=== PATIENT | female | born 1930 | race Caucasian/White ===

== ENCOUNTER → 2017-11-22 | Outpatient (CLI) | payer MEDICARE | LOC: LABWHC1 10:51 | PROVIDERS: ATTEND Nurse Practitioner Family | DX: R05 Cough (principal); J31.1 Chronic nasopharyngitis | CPT/HCPCS: 87070; 87102; 88108; 88305 ==

== ENCOUNTER → 2020-09-11 | Outpatient (CLI) | payer MEDICARE, OTHER ==
--- NOTE | 2020-09-11 18:29 | CT ---
EXAMINATION TYPE: CT sinus wo con DATE OF EXAM: 09/11/2020 COMPARISON: NONE HISTORY: Chronic sinusitis per order, headache and dizziness. CT DLP: 587.5 mGycm. Automated Exposure Control for Dose Reduction was Utilized. TECHNIQUE: CT scan of the sinuses is performed without contrast, axial images are obtained, coronal r eformatted images are also reviewed. FINDINGS: Minimal mucosal thickening posterior aspect of the larger caliber right sphenoid sinus. Mil d to moderate mucosal thickening in ethmoid sinuses bilaterally. Mild to moderate inferior mucosal th ickening right frontal sinus with patchy fluid. The surgically treated ostiomeatal complex is patent bilaterally on coronal image 21. Visualized portion of mastoid air cells show no abnormal opacification. The globes are intact bilate rally. Visualized brain parenchyma shows moderate diffuse cerebral atrophy and chronic small vessel ischemic changes. Small subcutaneous light lipoma superior to the right frontal sinus noted axial raimundo ge [id number]. IMPRESSION: Some residual mild to moderate chronic paranasal sinus disease. Mild acute sinusitis rig ht frontal sinus on current study.
== END ==
LOC: RADCTMAIN 17:24
PROVIDERS: ATTEND Otolaryngology
DX: J32.9 Chronic sinusitis, unspecified (principal); R05 Cough
CPT/HCPCS: 70486

== ENCOUNTER → 2020-09-11 | Outpatient (CLI) | payer MEDICARE, OTHER ==
--- NOTE | 2020-09-11 18:04 | XR ---
EXAMINATION: XR chest 2V DATE AND TIME: 09/11/2020 5:46 PM CLINICAL INDICATION: PHH; R05; cough and sinus congestion TECHNIQUE: PA and lateral COMPARISON: None FINDINGS: The lungs are clear. The pleural spaces are negative. The cardiac silhouette is mildly enlarged, and the thoracic aorta is prominently tortuous The skeletal structures and soft tissues are negative for acute findings. IMPRESSION: NO ACUTE PROCESS.
== END | disposition home or self-care (01) ==
LOC: RADXRMAIN 17:40
PROVIDERS: ATTEND Otolaryngology
DX: R05 Cough (principal)
CPT/HCPCS: 71046

== ENCOUNTER → 2020-12-10 | Outpatient (CLI) | payer MEDICARE, OTHER | END | disposition home or self-care (01) | LOC: LABWHC1 12:52 | PROVIDERS: ATTEND Otolaryngology | DX: G50.1 Atypical facial pain (principal) | CPT/HCPCS: 36415; 85652 ==

== ENCOUNTER 2020-12-13 14:49 | Emergency (ER) | payer MEDICARE, OTHER ==
[2020-12-13 15:02] VITALS: TEMP 98.4
--- NOTE | 2020-12-13 15:29 | ED ---
Dizziness HPI - General Chief Complaint: Dizziness Stated Complaint: med reaction Time Seen by Provider: 12/13/20 15:14 Source: patient, family, RN notes reviewed Mode of arrival: wheelchair Limitations: no limitations - History of Present Illness Initial Comments: 89-year-old female, alert and oriented 4, presents to the emergency room complaining of sudden onset at 11:30 of nausea and vomiting with dizziness. Patient states that she had breakfast at 8:30 and took her Bactrim which was prescribed to her by Dr. Sanchez last week for frontal headache. Dr. Sanchez performed balloon intervention to bilateral nostrils 2 months ago the patient has been having some congestion since. Patient states that she just started to take the Bactrim this morning and he prescribed last week and thinks she may be having a reaction to the medication. Patient states all of her symptoms have resolved at this point. However she did have one episode of vomiting 11:30 which was mostly phlegm and mucus and then dry heaves multiple times after. Patient denies any chest pain, shortness of breath, tongue swelling, diarrhea or fevers. 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 MD Complaint: dizziness -: hour(s) (4) Timing: sudden onset Description: "room spinning" History of Same: No History of Trauma: No Associated Symptoms: other (Nausea vomiting) - Related Data Allergies Allergy/AdvReac Type Severity Reaction Status Date / Time amoxicillin [From Augmentin] Allergy Nausea & Verified 12/13/20 15:03 Vomiting & Diarrhea clavulanic acid Allergy Nausea & Verified 12/13/20 15:03 [From Augmentin] Vomiting & Diarrhea Review of Systems ROS Statement: Those systems with pertinent positive or pertinent negative responses have been documented in the HPI. ROS Other: All systems not noted in ROS Statement are negative. Past Medical History Past Medical History: Atrial Fibrillation, Hypertension History of Any Multi-Drug Resistant Organisms: None Reported Additional Past Surgical History / Comment(s): sinus surgery Past Psychological History: No Psychological Hx Reported Smoking Status: Former smoker Past Alcohol Use History: None Reported Past Drug Use History: None Reported General Exam Limitations: no limitations General appearance: alert, in no apparent distress Head exam: Present: atraumatic, normocephalic, normal inspection Eye exam: Present: normal appearance, PERRL, EOMI. Absent: scleral icterus, conjunctival injection, periorbital swelling Pupils: Present: normal accommodation ENT exam: Present: normal exam, mucous membranes dry (Sticky), mucous membranes moist Neck exam: Present: normal inspection, full ROM. Absent: tenderness, meningismus, lymphadenopathy, thyromegaly Respiratory exam: Present: normal lung sounds bilaterally. Absent: respiratory distress, wheezes, rales, rhonchi, stridor, chest wall tenderness, accessory muscle use Cardiovascular Exam: Present: regular rate, normal rhythm, normal heart sounds. Absent: systolic murmur, diastolic murmur, rubs, gallop, clicks GI/Abdominal exam: Present: soft, normal bowel sounds. Absent: distended, tenderness, guarding, rebound, rigid Rectal exam: Present: deferred Extremities exam: Present: normal inspection, full ROM, normal capillary refill. Absent: tenderness, pedal edema, joint swelling, calf tenderness Back exam: Present: normal inspection, full ROM. Absent: tenderness, CVA tenderness (R), CVA tenderness (L) Neurological exam: Present: alert, oriented X3, CN II-XII intact Psychiatric exam: Present: normal affect, normal mood Skin exam: Present: warm, dry, intact, normal color. Absent: rash, cyanosis, diaphoretic, erythema, urticaria, vesicles, petechiae, pallor, mottled Course Vital Signs 12/13/20 12/13/20 12/13/20 14:54 16:34 18:53 Temperature 98.4 F Pulse Rate 82 70 65 Respiratory 20 18 18 Rate Blood Pressure 115/69 172/64 160/60 O2 Sat by Pulse 96 96 93 L Oximetry EKG Findings - EKG Results: EKG: sinus rhythm (Ventricular rate is 68, PA interval 0.186, QRS of 0.102, QTC is 0.414) Medical Decision Making - Medical Decision Making Patient states she was feeling better after the IV fluids, and Zofran for nausea. Patient was treated by Dr. Sanchez with Bactrim for sinusitis however has only taken one pill. Patient thinks this is related to have Bactrim that she took and is going to stop and call in the morning. She does have a white count of 15 with neutrophil 13.8. Bun is elevated at 28 which patient was hydrated with one liter of fluid. Troponin is negative at 0.012, EKG sinus rhythm. Chest x-ray shows no acute cardiopulmonary process. Patient and her son are agreeable to discharge, son states he will call Dr. Sanchez to discuss antibiotic options this patient's refusing change in antibiotics at this time. Case discussed with . - Lab Data Result diagrams: 12/13/20 16:29 12/13/20 16:29 Lab Results 12/13/20 12/13/20 12/13/20 Range/Units 16:29 16:29 16:29 WBC 15.2 H (3.8-10.6) k/uL RBC 4.24 (3.80-5.40) m/uL Hgb 13.7 (11.4-16.0) gm/dL Hct 39.9 (34.0-46.0) % MCV 94.1 (80.0-100.0) fL MCH 32.3 (25.0-35.0) pg MCHC 34.4 (31.0-37.0) g/dL RDW 12.5 (11.5-15.5) % Plt Count 240 (150-450) k/uL MPV 7.8 Neutrophils % 91 % Lymphocytes % 2 % Monocytes % 5 % Eosinophils % 2 % Basophils % 0 % Neutrophils # 13.8 H (1.3-7.7) k/uL Lymphocytes # 0.3 L (1.0-4.8) k/uL Monocytes # 0.7 (0-1.0) k/uL Eosinophils # 0.3 (0-0.7) k/uL Basophils # 0.0 (0-0.2) k/uL Sodium 139 (137-145) mmol/L Potassium 3.9 (3.5-5.1) mmol/L Chloride 105 (98-107) mmol/L Carbon Dioxide 27 (22-30) mmol/L Anion Gap 7 mmol/L BUN 28 H (7-17) mg/dL Creatinine 0.66 (0.52-1.04) mg/dL Est GFR (CKD-EPI)AfAm >90 (>60 ml/min/1.73 sqM) Est GFR (CKD-EPI)NonAf 79 (>60 ml/min/1.73 sqM) Glucose 126 H (74-99) mg/dL Calcium 9.2 (8.4-10.2) mg/dL Total Bilirubin 0.6 (0.2-1.3) mg/dL AST 27 (14-36) U/L ALT 15 (4-34) U/L Alkaline Phosphatase 77 (38-126) U/L Troponin I <0.012 (0.000-0.034) ng/mL Total Protein 6.7 (6.3-8.2) g/dL Albumin 4.0 (3.5-5.0) g/dL Disposition Clinical Impression: Dehydration, Nausea Clinical Impression: (Ruled Out): Dehydration after exertion Disposition: HOME SELF-CARE Condition: Good Instructions (If sedation given, give patient instructions): Acute Nausea and Vomiting (ED), Dizziness (ED) Additional Instructions: Follow-up with Dr. Sanchez this week return if worsening symptoms. Is patient prescribed a controlled substance at d/c from ED?: No Referrals: Kieran Lam MD [Primary Care Provider] - 1-2 days Stephen Gerardo DO [Doctor of Osteopathic Medicine] - 1-2 days Time of Disposition: 18:35
[2020-12-13] MEDS ORDERED: SODIUM CHLORIDE 0.9% 500 ML 500 ML IV STA (15:36)
[2020-12-13 16:35] VITALS: RESP 18
[2020-12-13 16:43] LABS: Basophils % (A) 0 %; Eosinophils # (A) 0.3 k/uL (0-0.7); Eosinophils % (A) 2 %; HCT 39.9 % (34.0-46.0); HGB 13.7 gm/dL (11.4-16.0); Lymphocytes # (A) 0.3 k/uL (1.0-4.8); Lymphocytes % (A) 2 %; MCH 32.3 pg (25.0-35.0); MCHC 34.4 g/dL (31.0-37.0); MCV 94.1 fL (80.0-100.0); Mean Platelet Volume 7.8; Monocytes # (A) 0.7 k/uL (0-1.0); Monocytes % (A) 5 %; Neutrophils # (A) 13.8 k/uL (1.3-7.7); Neutrophils % (A) 91 %; Platelet Count 240 k/uL (150-450); RBC 4.24 m/uL (3.80-5.40); RDW 12.5 % (11.5-15.5); WBC 15.2 k/uL (3.8-10.6)
--- NOTE | 2020-12-13 16:53 | XR ---
EXAMINATION TYPE: XR chest 2V DATE OF EXAM: 12/13/2020 COMPARISON: 09/11/2020 HISTORY: Dizziness TECHNIQUE: FINDINGS: There is no heart failure nor confluent pneumonic infiltrate. Costophrenic angles are clear . There are no hilar masses. Thoracic aorta is atheromatous. IMPRESSION: No active cardiopulmonary disease. Atheromatous aorta. No change.
[2020-12-13 16:56] LABS: ALT 15 U/L (4-34); AST 27 U/L (14-36); African American GFR (CKD) >90 (>60 ml/min/1.73 sqM); Alkaline Phosphatase 77 U/L (38-126); Anion Gap 7 mmol/L; Blood Urea Nitrogen 28 mg/dL (7-17); Calcium 9.2 mg/dL (8.4-10.2); Carbon Dioxide 27 mmol/L (22-30); Chloride 105 mmol/L (98-107); Glucose 126 mg/dL (74-99); Non-African American GFR(CKD) 79 (>60 ml/min/1.73 sqM); Potassium 3.9 mmol/L (3.5-5.1); Sodium 139 mmol/L (137-145); Total Bilirubin 0.6 mg/dL (0.2-1.3); Total Protein 6.7 g/dL (6.3-8.2)
[2020-12-13] MEDS ORDERED: ONDANSETRON 4 MG/2 ML VIAL IVP STA (18:17)
[2020-12-13] MEDS ORDERED: SODIUM CHLORIDE 0.9% 500 ML 500 ML IV ONE (18:18)
[2020-12-13 18:54] VITALS: BP 160/60; PULSE 65
== END 2020-12-13 19:36 | disposition home or self-care (01) ==
LOC: EC 14:49
DX: R11.2 Nausea with vomiting, unspecified (principal); R42 Dizziness and giddiness; I10 Essential (primary) hypertension; I48.91 Unspecified atrial fibrillation; I70.0 Atherosclerosis of aorta; Z87.891 Personal history of nicotine dependence; Z88.0 Allergy status to penicillin; Z88.1 Allergy status to other antibiotic agents
CPT/HCPCS: 99284; 96374; 96361 ×3; 36415; 93005; 80053; 84484; 85025; 71046; J2405

== ENCOUNTER → 2020-12-17 | Outpatient (CLI) | payer MEDICARE, OTHER ==
--- NOTE | 2020-12-17 15:23 | CT ---
EXAMINATION TYPE: CT sinus wo con DATE OF EXAM: 12/17/2020 COMPARISON: Prior sinus CT September 11, 2020 HISTORY: chronic sinusitis. Headaches and dizziness per patient. CT DLP: 596.5 mGycm. Automated Exposure Control for Dose Reduction was Utilized. TECHNIQUE: CT scan of the sinuses is performed without contrast, axial images are obtained, coronal r eformatted images are also reviewed. FINDINGS: New curvilinear dependent fluid along the posterior aspect right sphenoid sinus. Hypoplasti c left sphenoid sinus. Poorly aerated ethmoid sinuses with more prominent patchy fluid with anterior left ethmoid sinus . Slightly more prominent patchy fluid in the inferior aspect bilateral frontal si nuses. Improvement in inferior mild mucosal thickening. The surgically treated ostiomeatal complex re surinder patent bilaterally on coronal image 19. Dense vascular calcification internal carotid arteries bilaterally redemonstrated. Visualized portion of mastoid air cells show no abnormal opacification. The globes are intact bilaterally. Visualized brain parenchyma shows moderate diffuse cerebral atrophy and chronic small vessel ischemic change. S mall subcutaneous lipoma anterior to superior aspect right frontal sinus axial image 40 is redemonstr ated. IMPRESSION: Slight interval progression in acute paranasal sinus disease as detailed above.
== END | disposition home or self-care (01) ==
LOC: RADCTMAIN 07:51
PROVIDERS: ATTEND Otolaryngology
DX: J32.4 Chronic pansinusitis (principal)
CPT/HCPCS: 70486

== ENCOUNTER → 2021-04-01 | Outpatient (CLI) | payer MEDICARE, OTHER ==
[2021-04-01 09:32] LABS: HCT 39.7 % (34.0-46.0); HGB 12.8 gm/dL (11.4-16.0); MCH 31.2 pg (25.0-35.0); MCHC 32.3 g/dL (31.0-37.0); MCV 96.6 fL (80.0-100.0); Mean Platelet Volume 8.8; Platelet Count 280 k/uL (150-450); RBC 4.11 m/uL (3.80-5.40); RDW 12.7 % (11.5-15.5); WBC 4.8 k/uL (3.8-10.6)
[2021-04-01 09:51] LABS: INR 6.5 (<1.2)
== END | disposition home or self-care (01) ==
LOC: LABWHC1 09:01
PROVIDERS: ATTEND Internal Medicine Interventional Cardiology
DX: I48.0 Paroxysmal atrial fibrillation (principal)
CPT/HCPCS: 36415; 85027; 85610